=== PATIENT | female | born 2000 | race Caucasian/White ===

== ENCOUNTER 2023-06-13 12:57 | Outpatient (CLI) | payer OTHER | END 2023-06-13 13:00 | disposition home or self-care (01) | LOC: SONOGRAMA 12:57 | PROVIDERS: ATTEND Pathology Anatomic Pathology & Clinical Pathology | DX: D34 Benign neoplasm of thyroid gland (principal); D36.0 Benign neoplasm of lymph nodes; E06.3 Autoimmune thyroiditis ==